=== PATIENT | female | born 1940 | race Caucasian/White ===

== ENCOUNTER → 2020-10-16 | Outpatient (CLI) | payer MEDICARE ==
[2016-10-28 14:51] VITALS: BP 147/85
[~2020-10-16] MED LIST: ASPI325T8 PO; ATEN25TA PO; ATOR20TA58 PO; ESCITALOPRAM OX10 MG PO; HYDR-2145 PO; LORA0.5T PO; RANI150C PO; TRAZ-118 PO
--- NOTE | 2020-10-16 12:17 | RAD ---
EXAM: CT Head without IV contrast CLINICAL HISTORY: Reason: cognitive impairment / Spl. Instructions: / History: COMPARISON: MRI brain 10/27/2016, CT 10/26/2016. TECHNIQUE: Routine CT of the head without contrast. PQRS compliance statement - One or more of the following individualized dose reduction techniques wer e utilized for this study: 1. Automated exposure control 2. Adjustment of the mA and/or kV according to patient size 3. Use of iterative reconstruction technique FINDINGS: There is no evidence of hemorrhage, mass or extra-axial fluid collection. Sood-white differentiation is maintained with no evidence of edema. Regions of encephalomalacia in th e left frontal, right frontal and left temporal regions. Subcortical and periventricular as well as d eep white matter foci of hypoattenuation likely changes of chronic small vessel disease. There is no mass effect or shift of the intracranial structures. The ventricles and cerebral sulci are prominent for the patients stated age consistent with generaliz ed cerebral volume loss. The cerebellum and brainstem are unremarkable. The calvarium demonstrates no evidence of fracture or focal lesion. Mild hyperostosis frontalis inter na is incidentally seen. There is normal aeration of the visualized paranasal sinuses and mastoid air cells. The visualized portions of the orbits are normal. Atherosclerotic calcifications of the intracranial internal carotid and vertebral arteries is seen. IMPRESSION: 1. No evidence for acute intracranial process. 2. 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 If there is clinical concern for superi mposed acute infarct, MRI is recommended. 3. White matter changes likely chronic small vessel disease. Electronically signed by: Sam Mccall MD (10/16/2020 12:14 PM) [id number]
== END ==
LOC: CT 14:03
PROVIDERS: ATTEND Family Medicine
DX: G31.84 Mild cognitive impairment of uncertain or unknown etiology (principal); G93.89 Other specified disorders of brain; I67.2 Cerebral atherosclerosis; Z86.73 Personal history of transient ischemic attack (TIA), and cerebral infarction without residual deficits
CPT/HCPCS: 70450